=== PATIENT | male | born 1980 | race Two or more races ===

== ENCOUNTER 2021-08-02 20:58 | Inpatient (IN) | payer MEDICAID, OTHER ==
[~2021-08-02] VITALS: Ht 172.7 cm; Wt 74.8 kg
[2021-08-02 20:00] VITALS: BP 116/64
[2021-08-02 21:30] VITALS: BP 116/64
[2021-08-02] MEDS ORDERED: DEXTROSE 50% WATER 50ML SYRINGE IV PRN ×2 (22:00)
[2021-08-02] MEDS ORDERED: OXYCODONE HCL 5MG TABLET PO PRN (22:00)
[2021-08-02] MEDS ORDERED: GLUCAGON,HUMAN RECOMBINANT 1MG/VIAL IM PRN (22:00)
[2021-08-02] MEDS ORDERED: DOCUSATE SODIUM SUGAR FREE 100MG/10ML UDC PO PRN (22:00)
[2021-08-02] MEDS ORDERED: NALOXONE HCL 0.4MG/ML VIAL IV PRN (23:30)
[2021-08-02] MEDS: ACETAMINOPHEN 650MG/20.3ML UDC PO SCH (23:42)
[2021-08-02] MEDS: SODIUM CHLORIDE 0.9% 1,000 ML IV SCH (23:42)
[2021-08-03] MEDS ORDERED: OXYCODONE HCL 5MG TABLET PO PRN
[2021-08-03] MEDS ORDERED: ALBUTEROL (0.083%) 2.5MG/3ML NEB HHN SCH
[2021-08-03] MEDS ORDERED: HYDROMORPHONE HCL/PF 2MG/ML CPJ IV PRN
[2021-08-03] MEDS: IPRATROPIUM BROMIDE (0.02%) 0.5MG/2.5ML NEB HHN SCH ×3 (01:58→13:51)
[2021-08-03] MEDS: ACETYLCYSTEINE 200MG/ML 20% VIAL 4ML INH SCH ×4 (01:58→21:19)
[2021-08-03] MEDS ORDERED: DOCUSATE SODIUM SUGAR FREE 100MG/10ML UDC PO PRN (04:47)
[2021-08-03] MEDS: BLOOD SUGAR DIAGNOSTIC STRIP TEST SCH ×4 (05:21→20:49)
[2021-08-03] MEDS: INSULIN LISPRO 100 UNITS/ML SUBCUT SCH ×4 (05:22→22:19)
[2021-08-03] MEDS: ACETAMINOPHEN 650MG/20.3ML UDC PO SCH ×3 (05:22→22:01)
[2021-08-03 06:38] LABS: PROTHROMBIN TIME 10.9 sec (9.6-11.0)
[2021-08-03 06:39] LABS: CHLORIDE 101 mEq/L (98-107)
[2021-08-03 06:45] LABS: BASOPHILS % 0.7 % (0.0-2.0); EOSINOPHILS % 2.4 % (0.0-5.0); HEMATOCRIT. 32.4 % (42.0-52.0); HEMOGLOBIN. 10.8 g/dL (14.0-18.0); LYMPHOCYTES % 19.7 % (20.0-50.0); MEAN CORPUSCULAR HEMOGLOBIN 29.1 pg (28.0-32.0); MEAN CORPUSCULAR VOLUME 86.7 fL (80.0-94.0); MEAN PLATELET VOLUME 6.6 fl (7.4-10.4); MONOCYTES % 9.6 % (2.0-8.0); NEUTROPHILS % 67.6 % (40.0-76.0); PLATELET 449 x1000/uL (130-400); RED BLOOD CELL COUNT 3.73 mill/uL (4.7-6.1); RED CELL DISTRIBUTION WIDTH 16.4 % (11.6-14.6)
[2021-08-03 08:00] VITALS: BP 117/61
[2021-08-03] MEDS ORDERED: FLUCONAZOLE 100MG TABLET PO SCH (09:00)
[2021-08-03] MEDS: POLYETHYLENE GLYCOL 3350 (17GM) 1 DOSE PACK PO SCH (09:33)
[2021-08-03] MEDS: SODIUM CHLORIDE 0.9% 1,000 ML IV SCH (14:17)
[2021-08-03] MEDS: ENOXAPARIN 60MG/0.6ML SYR SUBCUT SCH ×2 (14:19→20:49)
[2021-08-03 20:00] VITALS: BP 119/65
[2021-08-03] MEDS: SENNOSIDES/DOCUSATE SOD 8.6/50MG TABLET PO SCH (20:48)
[2021-08-03] MEDS ORDERED: IPRATROPIUM/ALBUTEROL 0.5-3(2.5)MG/3ML NEB ONE (21:15)
[2021-08-03] MEDS: IPRATROPIUM/ALBUTEROL 0.5-3(2.5)MG/3ML NEB HHN SCH (21:19)
[2021-08-04] MEDS: IPRATROPIUM/ALBUTEROL 0.5-3(2.5)MG/3ML NEB HHN SCH ×2 (01:15→21:20)
[2021-08-04] MEDS: SODIUM CHLORIDE 0.9% 1,000 ML IV SCH ×2 (02:13→15:25)
[2021-08-04 04:02] LABS: CLARITY URINE CLEAR (CLEAR); COLOR URINE YELLOW (YELLOW); KETONES URINE NEGATIVE (NEGATIVE); LEUKOCYTE ESTERASE URINE NEGATIVE (NEGATIVE); NITRITE URINE NEGATIVE (NEGATIVE); OCCULT BLOOD URINE NEGATIVE (NEGATIVE); PROTEIN URINE NEGATIVE (NEGATIVE); SPECIFIC GRAVITY URINE 1.016 (1.005-1.030); UROBILINOGEN URINE 0.2 E.U./dL (0.2-1.0)
[2021-08-04] MEDS: INSULIN LISPRO 100 UNITS/ML SUBCUT SCH ×4 (06:31→20:59)
[2021-08-04] MEDS: ACETAMINOPHEN 650MG/20.3ML UDC PO SCH ×3 (06:31→20:59)
[2021-08-04] MEDS: BLOOD SUGAR DIAGNOSTIC STRIP TEST SCH ×4 (06:31→20:59)
[2021-08-04 08:00] VITALS: BP 99/57
[2021-08-04] MEDS: POLYETHYLENE GLYCOL 3350 (17GM) 1 DOSE PACK PO SCH (10:21)
[2021-08-04] MEDS: ENOXAPARIN 60MG/0.6ML SYR SUBCUT SCH ×2 (10:21→20:57)
[2021-08-04 20:00] VITALS: BP 122/69
[2021-08-04] MEDS: SENNOSIDES/DOCUSATE SOD 8.6/50MG TABLET PO SCH (20:58)
[2021-08-05] MEDS: IPRATROPIUM/ALBUTEROL 0.5-3(2.5)MG/3ML NEB HHN SCH ×4 (03:00→21:21)
[2021-08-05] MEDS: SODIUM CHLORIDE 0.9% 1,000 ML IV SCH (04:50)
[2021-08-05] MEDS: BLOOD SUGAR DIAGNOSTIC STRIP TEST SCH ×4 (06:04→21:00)
[2021-08-05] MEDS: ACETAMINOPHEN 650MG/20.3ML UDC PO SCH ×3 (06:04→21:06)
[2021-08-05 08:00] VITALS: BP 124/82
[2021-08-05] MEDS: POLYETHYLENE GLYCOL 3350 (17GM) 1 DOSE PACK PO SCH (09:00)
[2021-08-05] MEDS: INSULIN LISPRO 100 UNITS/ML SUBCUT SCH ×4 (09:00→21:00)
[2021-08-05] MEDS: ENOXAPARIN 60MG/0.6ML SYR SUBCUT SCH ×2 (10:23→21:06)
[2021-08-05] MEDS: ACETYLCYSTEINE 200MG/ML 20% VIAL 4ML INH SCH ×2 (14:33→14:45)
[2021-08-05] MEDS ORDERED: BISACODYL 5MG TABLET PO PRN (15:45)
[2021-08-05] MEDS ORDERED: NA PHOS,M-B/NA PHOS,DI-BA ENEMA 118ML PR PRN (15:45)
[2021-08-05] MEDS: DOCUSATE SODIUM SUGAR FREE 100MG/10ML UDC PO SCH ×2 (15:45→17:00)
[2021-08-05 20:00] VITALS: BP 119/73
[2021-08-05] MEDS: SENNOSIDES/DOCUSATE SOD 8.6/50MG TABLET PO SCH (21:06)
[2021-08-06] MEDS: IPRATROPIUM/ALBUTEROL 0.5-3(2.5)MG/3ML NEB HHN SCH ×4 (00:57→21:15)
[2021-08-06] MEDS: ACETYLCYSTEINE 200MG/ML 20% VIAL 4ML INH SCH ×4 (00:57→21:15)
[2021-08-06] MEDS: BLOOD SUGAR DIAGNOSTIC STRIP TEST SCH ×4 (06:30→21:00)
[2021-08-06] MEDS: SODIUM CHLORIDE 0.9% 1,000 ML IV SCH (07:30)
[2021-08-06 08:00] VITALS: BP 113/66
[2021-08-06] MEDS: INSULIN LISPRO 100 UNITS/ML SUBCUT SCH ×4 (08:04→21:00)
[2021-08-06] MEDS: DOCUSATE SODIUM SUGAR FREE 100MG/10ML UDC PO SCH ×2 (08:28→17:37)
[2021-08-06] MEDS: ENOXAPARIN 60MG/0.6ML SYR SUBCUT SCH ×2 (08:29→22:27)
[2021-08-06] MEDS: POLYETHYLENE GLYCOL 3350 (17GM) 1 DOSE PACK PO SCH (08:29)
[2021-08-06 20:00] VITALS: BP 119/67
[2021-08-06] MEDS: SENNOSIDES/DOCUSATE SOD 8.6/50MG TABLET PO SCH (21:00)
[2021-08-06] MEDS: ACETAMINOPHEN 650MG/20.3ML UDC PO SCH (22:27)
[2021-08-07] MEDS: IPRATROPIUM/ALBUTEROL 0.5-3(2.5)MG/3ML NEB HHN SCH ×4 (00:51→21:32)
[2021-08-07] MEDS: ACETAMINOPHEN 650MG/20.3ML UDC PO SCH ×3 (05:53→21:48)
[2021-08-07] MEDS: BLOOD SUGAR DIAGNOSTIC STRIP TEST SCH ×4 (07:00→21:00)
[2021-08-07] MEDS: ACETYLCYSTEINE 200MG/ML 20% VIAL 4ML INH SCH ×2 (07:07→13:07)
[2021-08-07] MEDS: SODIUM CHLORIDE 0.9% 1,000 ML IV SCH ×2 (07:30→09:07)
[2021-08-07 08:00] VITALS: BP 120/58
[2021-08-07] MEDS: POLYETHYLENE GLYCOL 3350 (17GM) 1 DOSE PACK PO SCH (09:00)
[2021-08-07] MEDS: DOCUSATE SODIUM SUGAR FREE 100MG/10ML UDC PO SCH ×2 (09:00→17:00)
[2021-08-07] MEDS: INSULIN LISPRO 100 UNITS/ML SUBCUT SCH ×4 (09:00→21:00)
[2021-08-07] MEDS: ENOXAPARIN 60MG/0.6ML SYR SUBCUT SCH ×2 (09:05→21:48)
[2021-08-07 20:00] VITALS: BP 119/61
[2021-08-07] MEDS: SENNOSIDES/DOCUSATE SOD 8.6/50MG TABLET PO SCH (21:47)
[2021-08-08] MEDS: IPRATROPIUM/ALBUTEROL 0.5-3(2.5)MG/3ML NEB HHN SCH ×3 (01:21→23:57)
[2021-08-08] MEDS: ACETAMINOPHEN 650MG/20.3ML UDC PO SCH ×3 (05:57→22:29)
[2021-08-08] MEDS: INSULIN LISPRO 100 UNITS/ML SUBCUT SCH ×4 (05:58→22:50)
[2021-08-08] MEDS: BLOOD SUGAR DIAGNOSTIC STRIP TEST SCH ×4 (05:58→21:00)
[2021-08-08 08:00] VITALS: BP 117/77
[2021-08-08] MEDS: ENOXAPARIN 60MG/0.6ML SYR SUBCUT SCH ×2 (09:48→22:46)
[2021-08-08] MEDS: DOCUSATE SODIUM SUGAR FREE 100MG/10ML UDC PO SCH ×2 (09:48→17:41)
[2021-08-08] MEDS: POLYETHYLENE GLYCOL 3350 (17GM) 1 DOSE PACK PO SCH (09:48)
[2021-08-08 20:00] VITALS: BP 113/71
[2021-08-08] MEDS: SENNOSIDES/DOCUSATE SOD 8.6/50MG TABLET PO SCH (22:28)
[2021-08-09] MEDS: BLOOD SUGAR DIAGNOSTIC STRIP TEST SCH ×4 (06:47→21:06)
[2021-08-09] MEDS: INSULIN LISPRO 100 UNITS/ML SUBCUT SCH ×4 (06:48→21:00)
[2021-08-09] MEDS: ACETAMINOPHEN 650MG/20.3ML UDC PO SCH ×3 (06:48→21:07)
[2021-08-09 08:00] VITALS: BP 107/71
[2021-08-09] MEDS: POLYETHYLENE GLYCOL 3350 (17GM) 1 DOSE PACK PO SCH (09:00)
[2021-08-09] MEDS: IPRATROPIUM/ALBUTEROL 0.5-3(2.5)MG/3ML NEB HHN SCH (09:00)
[2021-08-09] MEDS: DOCUSATE SODIUM SUGAR FREE 100MG/10ML UDC PO SCH ×2 (09:19→17:00)
[2021-08-09] MEDS: ENOXAPARIN 60MG/0.6ML SYR SUBCUT SCH ×2 (09:19→21:07)
[2021-08-09 20:00] VITALS: BP 98/51
[2021-08-09] MEDS: SENNOSIDES/DOCUSATE SOD 8.6/50MG TABLET PO SCH (21:06)
[2021-08-10] MEDS: BLOOD SUGAR DIAGNOSTIC STRIP TEST SCH ×4 (05:25→21:24)
[2021-08-10] MEDS: INSULIN LISPRO 100 UNITS/ML SUBCUT SCH ×4 (05:26→21:00)
[2021-08-10] MEDS: ACETAMINOPHEN 650MG/20.3ML UDC PO SCH ×3 (05:26→21:24)
[2021-08-10 07:23] LABS: BASOPHILS % 0.8 % (0.0-2.0); EOSINOPHILS % 3.1 % (0.0-5.0); HEMATOCRIT. 31.1 % (42.0-52.0); HEMOGLOBIN. 10.4 g/dL (14.0-18.0); LYMPHOCYTES % 24.7 % (20.0-50.0); MEAN CORPUSCULAR HEMOGLOBIN 29.3 pg (28.0-32.0); MEAN CORPUSCULAR VOLUME 87.5 fL (80.0-94.0); MEAN PLATELET VOLUME 6.7 fl (7.4-10.4); MONOCYTES % 7.6 % (2.0-8.0); NEUTROPHILS % 63.8 % (40.0-76.0); PLATELET 432 x1000/uL (130-400); RED BLOOD CELL COUNT 3.55 mill/uL (4.7-6.1); RED CELL DISTRIBUTION WIDTH 15.4 % (11.6-14.6)
[2021-08-10 07:33] LABS: CHLORIDE 104 mEq/L (98-107)
[2021-08-10 08:00] VITALS: BP 107/67
[2021-08-10] MEDS: DOCUSATE SODIUM SUGAR FREE 100MG/10ML UDC PO SCH ×2 (09:00→17:00)
[2021-08-10] MEDS: POLYETHYLENE GLYCOL 3350 (17GM) 1 DOSE PACK PO SCH (09:00)
[2021-08-10] MEDS: ENOXAPARIN 60MG/0.6ML SYR SUBCUT SCH ×2 (09:31→21:24)
[2021-08-10 20:00] VITALS: BP 100/58
[2021-08-10] MEDS: SENNOSIDES/DOCUSATE SOD 8.6/50MG TABLET PO SCH (21:23)
[2021-08-11] MEDS: ACETAMINOPHEN 650MG/20.3ML UDC PO SCH ×3 (06:00→21:38)
[2021-08-11] MEDS: INSULIN LISPRO 100 UNITS/ML SUBCUT SCH ×4 (06:10→21:00)
[2021-08-11] MEDS: BLOOD SUGAR DIAGNOSTIC STRIP TEST SCH ×4 (06:10→21:26)
[2021-08-11] MEDS: IPRATROPIUM/ALBUTEROL 0.5-3(2.5)MG/3ML NEB HHN SCH ×2 (07:24→15:36)
[2021-08-11 08:00] VITALS: BP 104/55
[2021-08-11] MEDS: POLYETHYLENE GLYCOL 3350 (17GM) 1 DOSE PACK PO SCH (09:00)
[2021-08-11] MEDS: DOCUSATE SODIUM SUGAR FREE 100MG/10ML UDC PO SCH (09:00)
[2021-08-11] MEDS: ENOXAPARIN 60MG/0.6ML SYR SUBCUT SCH ×2 (09:18→21:27)
[2021-08-11] MEDS ORDERED: LACTULOSE 20G/30ML UDC PO SCH (16:00)
[2021-08-11 20:00] VITALS: BP 122/68
[2021-08-11] MEDS: SENNOSIDES/DOCUSATE SOD 8.6/50MG TABLET PO SCH (21:00)
[2021-08-12] MEDS: ACETAMINOPHEN 650MG/20.3ML UDC PO SCH ×3 (05:17→22:00)
[2021-08-12] MEDS: BLOOD SUGAR DIAGNOSTIC STRIP TEST SCH ×4 (06:16→21:00)
[2021-08-12] MEDS: INSULIN LISPRO 100 UNITS/ML SUBCUT SCH ×4 (06:16→21:00)
[2021-08-12 08:00] VITALS: BP 104/71
[2021-08-12] MEDS: POLYETHYLENE GLYCOL 3350 (17GM) 1 DOSE PACK PO SCH (08:37)
[2021-08-12] MEDS: ENOXAPARIN 60MG/0.6ML SYR SUBCUT SCH ×2 (08:37→21:34)
[2021-08-12] MEDS: DOCUSATE SODIUM SUGAR FREE 100MG/10ML UDC PO SCH ×2 (08:37→16:44)
[2021-08-12] MEDS: IPRATROPIUM/ALBUTEROL 0.5-3(2.5)MG/3ML NEB HHN SCH ×2 (09:21→17:13)
[2021-08-12 20:00] VITALS: BP 134/83
[2021-08-12] MEDS: SENNOSIDES/DOCUSATE SOD 8.6/50MG TABLET PO SCH (21:00)
[2021-08-13] MEDS: ACETAMINOPHEN 650MG/20.3ML UDC PO SCH ×3 (06:00→22:00)
[2021-08-13] MEDS: BLOOD SUGAR DIAGNOSTIC STRIP TEST SCH ×4 (06:26→21:00)
[2021-08-13] MEDS: INSULIN LISPRO 100 UNITS/ML SUBCUT SCH ×4 (06:27→21:00)
[2021-08-13] MEDS: IPRATROPIUM/ALBUTEROL 0.5-3(2.5)MG/3ML NEB HHN SCH ×2 (07:46→14:00)
[2021-08-13 08:00] VITALS: BP 114/70
[2021-08-13] MEDS: POLYETHYLENE GLYCOL 3350 (17GM) 1 DOSE PACK PO SCH (09:00)
[2021-08-13] MEDS: DOCUSATE SODIUM SUGAR FREE 100MG/10ML UDC PO SCH ×2 (09:00→16:02)
[2021-08-13] MEDS: ENOXAPARIN 60MG/0.6ML SYR SUBCUT SCH ×2 (09:13→21:00)
[2021-08-13 20:00] VITALS: BP 119/78
[2021-08-13] MEDS: SENNOSIDES/DOCUSATE SOD 8.6/50MG TABLET PO SCH (21:00)
[2021-08-14] MEDS: ACETAMINOPHEN 650MG/20.3ML UDC PO SCH (06:00)
[2021-08-14] MEDS: BLOOD SUGAR DIAGNOSTIC STRIP TEST SCH ×2 (06:30→11:15)
[2021-08-14 08:00] VITALS: BP 118/60
[2021-08-14] MEDS: ENOXAPARIN 60MG/0.6ML SYR SUBCUT SCH (08:54)
[2021-08-14] MEDS: POLYETHYLENE GLYCOL 3350 (17GM) 1 DOSE PACK PO SCH (08:57)
[2021-08-14] MEDS: INSULIN LISPRO 100 UNITS/ML SUBCUT SCH ×2 (08:57→13:00)
[2021-08-14] MEDS: DOCUSATE SODIUM SUGAR FREE 100MG/10ML UDC PO SCH (08:57)
[2021-08-14 10:58] VITALS: BP 118/60
[2021-08-14] MEDS: IPRATROPIUM/ALBUTEROL 0.5-3(2.5)MG/3ML NEB HHN SCH (10:59)
== END 2021-08-14 13:45 | disposition home health service (06) | DRG 930 ==
LOC: EEVIPCON 20:58 → OBSVTOIN 20:58
PROVIDERS: ADMIT Psychiatry & Neurology Neurology; ATTEND Hospitalist
DX: S06.5X0A Traumatic subdural hemorrhage without loss of consciousness, initial encounter (principal); S27.2XXA Traumatic hemopneumothorax, initial encounter; B37.1 Pulmonary candidiasis; R57.8 Other shock; J96.01 Acute respiratory failure with hypoxia; J96.00 Acute respiratory failure, unspecified whether with hypoxia or hypercapnia; S36.113A Laceration of liver, unspecified degree, initial encounter; S22.20XA Unspecified fracture of sternum, initial encounter for closed fracture; S02.119A Unspecified fracture of occiput, initial encounter for closed fracture; S52.202A Unspecified fracture of shaft of left ulna, initial encounter for closed fracture; S52.92XA Unspecified fracture of left forearm, initial encounter for closed fracture; D64.9 Anemia, unspecified; E87.5 Hyperkalemia; E87.6 Hypokalemia; F17.210 Nicotine dependence, cigarettes, uncomplicated; F32.A Depression, unspecified; M62.82 Rhabdomyolysis; R13.10 Dysphagia, unspecified; S15.101A Unspecified injury of right vertebral artery, initial encounter; R79.89 Other specified abnormal findings of blood chemistry; R00.0 Tachycardia, unspecified; F90.9 Attention-deficit hyperactivity disorder, unspecified type; K61.1 Rectal abscess; S52.109A Unspecified fracture of upper end of unspecified radius, initial encounter for closed fracture; S06.2X0A Diffuse traumatic brain injury without loss of consciousness, initial encounter; Z86.74 Personal history of sudden cardiac arrest; Z56.0 Unemployment, unspecified; W34.00XA Accidental discharge from unspecified firearms or gun, initial encounter; Y93.89 Activity, other specified; Y92.89 Other specified places as the place of occurrence of the external cause; Y99.8 Other external cause status; Z79.899 Other long term (current) drug therapy; Z91.013 Allergy to seafood; R26.89 Other abnormalities of gait and mobility
CPT/HCPCS: 36415; 71046; 80048; 81003; 82962; 83036; 84145; 85025; 86592; 92523; 92610; 93970; 94640; 97110; 97112; 97116; 97150; 97163; 97166; 97530; 97535; J1650; J1815; J7030; J7608